=== PATIENT | female | born 1980 | race Caucasian/White ===

== ENCOUNTER 2022-11-13 07:43 | Emergency (ER) | payer BC, MEDICAID ==
[~2022-11-13] VITALS: Ht 165.1 cm; Wt 63.5 kg
[~2022-11-13 07:43] MED LIST: ASPI-1393 PO; HYDR-3919 PO
[2022-11-13 07:58] VITALS: BP_SYST 155
--- NOTE | 2022-11-13 08:01 | NUR ---
Triage Note Pt R leg swelling, pain no past medical hx AOX4 VSS Able to bennie needs known Primary RN to continue to monitor
--- NOTE | 2022-11-13 08:01 | NUR ---
Placed in room 8 . Placed on customer supply coordinator, blood pressure machine and pulse oximeter. To gown for exam. Side rails up. Report given to
--- NOTE | 2022-11-13 08:02 | NUR ---
ER at bedside examining patient.
--- NOTE | 2022-11-13 08:14 | NUR ---
PT BIB SELF AWAKE AND ALERT AOX4, NO SOB OR DISTRESS. PT C/O 10/10 PAIN TO R LOWER EXTREMITIES. PT RIGHT LEG WARM TO TOUCH, AND SWOLLEN COMPARED TO THE LEFT. TO STATED IT ALL STATRED YESTERDAY. PT DENIES N/V. PT HAS HX OF CELLULITIS. PT DENIES ALLL OTHER HX.
[2022-11-13 08:21] LABS: BASOPHILS % (AUTO) 0.2 % (0.0-2.0); EOSINOPHILS % (AUTO) 0.3 % (0.0-4.0); HEMATOCRIT 38.8 % (36-48); HEMOGLOBIN 12.9 g/dL (12.0-16.0); LYMPHOCYTES % (AUTO) 11.2 % (20.5-51.5); MEAN CORPUSCULAR HEMOGLOBIN 28 pg (27-31); MEAN CORPUSCULAR HGB CONC 33 % (32-36); MEAN CORPUSCULAR VOLUME 85 fL (79.0-98.0); MONOCYTES # (AUTO) 0.3 K/uL (0.0-1.0); MONOCYTES % (AUTO) 3.4 % (1.7-9.3); NEUTROPHILS # (AUTO) 7.6 K/uL (1.8-7.7); NEUTROPHILS % (AUTO) 84.9 % (40.0-70.0); PLATELET COUNT (AUTO) 250 K/uL (130-430); RED BLOOD CELL COUNT(AUTO) 4.55 MIL/uL (4.2-6.2); RED CELL DISTRIBUTION WIDTH 14.9 % (9.0-15.0)
[2022-11-13 08:45] LABS: CALCIUM 8.5 mg/dL (8.4-11.0); CREATININE 0.96 mg/dL (0.55-1.30)
[2022-11-13 08:49] LABS: ALBUMIN 2.9 g/dL (3.4-4.8); TOTAL BILIRUBIN 0.4 mg/dL (0.0-1.0)
[2022-11-13 09:06] LABS: C-REACTIVE PROTEIN QUANT 23.1 mg/dL (0-0.5)
[2022-11-13] MEDS ORDERED: CLIN-142 PO (10:07)
[2022-11-13 10:26] VITALS: BP_SYST 135
--- NOTE | 2022-11-13 10:59 | NUR ---
Patient given written and verbal discharge instructions and verbalizes understanding. ER MD DR JAMES discussed with patient the results and treatment provided. Patient in stable condition. ID arm band removed. Rx of CLINDAMYCIN given. Patient educated on pain management and to follow up with PMD. Pain Scale 6/10. Opportunity for questions provided and answered. Medication side effect fact sheet provided.
== END 2022-11-13 10:59 | disposition home or self-care (01) ==
LOC: SED 07:43
DX: L03.115 Cellulitis of right lower limb (principal); R22.41 Localized swelling, mass and lump, right lower limb; Z79.899 Other long term (current) drug therapy
CPT/HCPCS: 36415; 73590-TC; 80053; 83605; 85025; 86140; 93971; 99285